=== PATIENT | male | born 1995 | race Caucasian/White ===

== ENCOUNTER 2022-09-01 10:07 | Emergency (ER) | payer MEDICAID ==
[~2022-09-01] VITALS: Ht 180.3 cm; Wt 145.1 kg
[2022-09-01 10:08] VITALS: BP 149/85
[2022-09-01] MEDS ORDERED: ACETAMINOPHEN EXTRA STRENGTH 500 MG TAB PO ONE (10:35)
[2022-09-01] MEDS ORDERED: LIDOCAINE 5% 1 EA PATCH TP ONE (10:35)
[2022-09-01] MEDS ORDERED: CYCLOBENZAPRINE 10 MG TAB PO ONE (10:35)
--- NOTE | 2022-09-01 10:58 | NUR ---
MEDICATED FOR LOWER BACK PAIN 12/25, O2 SAT 98% RA, SR UP TIMES 2
--- NOTE | 2022-09-01 12:12 | NUR ---
FEELS BETTER ABOUT LOWER BACK PAIN, NOW 03/27, WILL BE DC HOME
[2022-09-01] MEDS ORDERED: CYCL-711 PO (12:14)
[2022-09-01] MEDS ORDERED: IBUP-2218 PO (12:14)
[2022-09-01] MEDS ORDERED: ACET-10509 PO (12:14)
[2022-09-01 12:25] VITALS: BP 133/54
--- NOTE | 2022-09-01 12:27 | NUR ---
Patient discharged with v/s stable. Written and verbal after care instructions given and explained. Patient alert, oriented and verbalized understanding of instructions. Ambulatory with steady gait. All questions addressed prior to discharge. ID band removed. Patient advised to follow up with PMD. Rx of given. Patient educated on indication of medication including possible reaction and side effects. Opportunity to ask questions provided and answered. LOWER BACK PAIN 03/27 DC'D HOME W FAMILY
== END 2022-09-01 12:27 | disposition home or self-care (01) ==
LOC: MED 10:07
DX: S39.012A Strain of muscle, fascia and tendon of lower back, initial encounter (principal); M62.830 Muscle spasm of back; Z79.899 Other long term (current) drug therapy; X58.XXXA Exposure to other specified factors, initial encounter; Y93.89 Activity, other specified; Y92.89 Other specified places as the place of occurrence of the external cause; Y99.8 Other external cause status
CPT/HCPCS: 99284